=== PATIENT | male | born 1995 | race Caucasian/White ===

== ENCOUNTER 2018-10-17 12:51 | Day surgery (SDC) | payer BC ==
[~2018-10-17] VITALS: Ht 172.7 cm; Wt 80.4 kg
[2018-10-17 13:18] LABS: BASO % 0.3 % (0.0-2.0); EOS # 0.1 (0.0-0.7); EOS % 1.2 % (0-4.0); GRAN # 7.1 (1.4-6.5); GRAN % 64.8 % (42.2-75.2); HEMOGLOBIN 16.3 g/dl (13.5-18.0); LYMPH # 2.8 (1.2-3.4); LYMPH % 25.8 % (20.0-51.0); MEAN CELL VOLUME 85 fl (80.0-100.0); MEAN CORPUSCULAR HEMOGLOBIN 30 pg (27.0-31.0); MEAN CORPUSCULAR HGB CONC 35 g/dl (33.0-37.0); MEAN PLATELET VOLUME 10.6 fl (7.4-10.4); MONO # 0.8 (0.1-0.6); MONO % 7.5 % (1.7-9.3); PLATELET COUNT 241 K/mm3 (130-400); RED BLOOD COUNT 5.39 M/mm3 (4.20-5.60); REDCELL DISTRIBUTION WIDTH-CV 12.2 % (11.5-14.5)
[2018-10-17 13:26] LABS: ALBUMIN 4.7 gm/dL (3.5-5.0); BILIRUBIN,TOTAL 1.1 mg/dL (0.0-1.0); C-REACTIVE PROTEIN 1.9 mg/dL (0.0-0.9); CALCIUM 9.8 mg/dL (8.4-10.2); CREATININE, serum 0.88 (0.66-1.25); POTASSIUM 4.4 mmol/L (3.4-5.0); TOTAL PROTEIN 8.4 gm/dL (6.4-8.2)
[2018-10-17 13:34] LABS: COLLECTION METHOD CLEAN CATCH
[2018-10-17 13:40] LABS: PH 7 (5-8); SQUAMOUS EPITHELIAL None Seen /hpf; URINE APPEARANCE Clear; URINE BACTERIA None Seen /hpf; URINE BILIRUBIN Negative (NEGATIVE); URINE BLOOD Negative (NEGATIVE); URINE COLOR Yellow; URINE GLUCOSE Negative (NEGATIVE); URINE KETONE Negative (NEGATIVE); URINE LEUKOCYTE ESTERASE Negative (NEGATIVE); URINE NITRATE Negative (NEGATIVE); URINE PROTEIN(semi-quant) Negative (NEGATIVE); URINE RBC 0-2 /hpf; URINE UROBILINOGEN Negative (NEGATIVE)
[2018-10-17 16:05] VITALS: BP 116/39; PULSE 49; TEMP 98.1
--- NOTE | 2018-10-17 16:55 | NUR ---
PT RECIEVED VIA STRETCHER FROM THE ER. IV NS PATENT TO LEFT FOREARM, SLOW FREE DRIP. THE PT GAVE INFORMATION FOR ASSESSMENTS A&B, HAD ALREADY SIGNED HIS OR CONSENT IN THE ER. HE IS ACCOMPANIED BY HIS FRIEND, RICHAR WHO WILL GO DOWN STAIRS WITH HIM. HIS FIANCEE IS AWARE AND IS ENROUTE FROM [place].
[2018-10-17 18:30] VITALS: BP 105/53; BP 99/43; PULSE 57; PULSE 60; TEMP 98.7; TEMP 98.8
--- NOTE | 2018-10-17 18:47 | NUR ---
recieved the pt from or\recovery, vss, dynamap set for frequents. supper order placed. the pt has a steam box tender who is staying behind to support the pt at anyway thing that he may need. his cell phone has been alerting but he doesn't feel ready to address the calls and texts yet. he has placed a supper order. the tray will be held untill he is ready for it. bedresting, abdominal sites dry.
[2018-10-17 19:00] VITALS: BP 98/47; PULSE 61
[2018-10-17 20:00] VITALS: BP 107/41; PULSE 58
[2018-10-17 21:00] VITALS: BP 98/40; PULSE 64; TEMP 98.8
--- NOTE | 2018-10-17 21:45 | NUR ---
RESTING IN BED. PT ADMIN. NORCO FOR ABDONMINAL DISCOMFORT. NO N/V.
[2018-10-18] VITALS: BP 118/54; PULSE 83; TEMP 99
[2018-10-18 04:15] VITALS: BP 106/46; PULSE 59; TEMP 98.1
--- NOTE | 2018-10-18 04:48 | NUR ---
RESTING QUIETLY. PT HAS BEEN ADMIN. NORCO TWICE FOR ABDOMINAL DISCOMFORT. PT HAS EATEN. PT IS VOIDING. NO N/V.
[2018-10-18 08:06] VITALS: BP 105/46; PULSE 49; TEMP 98.4
--- NOTE | 2018-10-18 09:38 | NUR ---
KRISTOPHER met with the patient to discuss discharge plan. The patient lives in [place], [place]. 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 He reports independence with ADLs and does not use any DME. The patient plans to return back to his home in [place] upon discharge. No additional needs at this time.
--- NOTE | 2018-10-18 10:35 | NUR ---
Discharge instructions reviewed with patient and family, verbalized understanding. Discharged via wheelchair to auto/home with family at 1035.
--- NOTE | 2018-10-18 10:52 | NUR ---
Initial visit; Patient thanked Floriculture Professor for looking in on him, offering "God's blessings and keeping him and dad in her prayers for a safe trip back to [place] and rapid healing.
== END 2018-10-18 10:35 | disposition home or self-care (01) ==
LOC: COL.ER 12:51 → COL.AMSURD 15:59 → SURG 19:31
PROVIDERS: Nurse Practitioner
DX: K35.80 Unspecified acute appendicitis (principal)
CPT/HCPCS: OP; A4216; J0461; J0696; J1100; J2405; J2704; J3010; J7030; Q9967